=== PATIENT | female | born 1985 | race Caucasian/White ===

== ENCOUNTER → 2017-07-21 10:06 | Outpatient (CLI) | payer BC, SELFPAY ==
--- NOTE | 2017-07-21 10:13 | MR_ITS ---
MR head/brain wo/w con HISTORY: Pituitary adenoma, follow-up pituitary tumor. ITS.REASON: PIT. ADENOMA ORDERING PHYSICIAN: Toño Bennett JR PATIENT AGE: 31 years COMPARISON: 04/21/2015 TECHNIQUE: Standard multiplanar multiecho sequences are performed without and with contrast. Thin section pre and post dynamic enhanced images are obtained of the pituitary gland FINDINGS: No midline shift, mass effect, hydrocephalus, or acute infarction is evident. No enhancing lesions are evident. The cerebellopontine angles, cerebellum, and brainstem are unremarkable. There remains a nonspecific periventricular T2 white matter hyperintensities in the deep white matter of the left parietal lobe. Thin section pre and post enhanced images obtained of the pituitary gland once again shows asymmetry in the pituitary gland or a slightly more prominent on the right side is compared to the left which may represent residual from previously treated adenoma. Not significant changed. No mass effect upon the optic chiasm or other structures. No mastoid effusion or sinus air-fluid level. IMPRESSION: 1. Overall stable MRI appearance of the brain with no acute finding and no significant change. 2. Continued mild asymmetric prominence of the right aspect of the pituitary gland unchanged and may represent residual from previously treated adenoma.
== END ==
PROVIDERS: Family Provider Family Medicine; PCP Family Medicine; Visit Provider Obstetrics & Gynecology
DX: D35.2 Benign neoplasm of pituitary gland (principal)
CPT/HCPCS: 70553; A9576

== ENCOUNTER 2020-06-29 01:21 | Emergency (ER) | payer BC, SELFPAY ==
[2020-06-29] VITALS (7 sets, daily range): BP systolic 129–144; BP diastolic 79–103; PULSE 77–129; RESP 12–18; TEMP 36.7; O2SAT 97–98; BMI 35.9
--- NOTE | 2020-06-29 01:45 | CT_ITS ---
Procedure: CT ABDOMEN PELVIS W CON Referring Doctor: Claus Paulino Patient Age:34Y CLINICAL INDICATION: RLQ pain for 1 hour. No nausea nor vomiting. Complains of diarrhea COMPARISON: No exams were available for comparison TECHNIQUE: No oral enteric contrast, IV contrast = 75 cc Isovue 370 IV contrast utilized With helical axial images obtained with sagittal and coronal reformats. All CT scans at the facility use one or more dose reduction, viz: automated exposure control, ma/kV adjustment per patient size (including targeted exams where dose is matched to indication, i.e. head), or iterative reconstruction technique. FINDINGS: Lower thorax: No acute finding ABDOMEN: Liver: No significant findings. Minor focal fatty changes anteriorly near falciform ligament.. No biliary dilatation. Gallbladder: Nondistended. No radio opaque stones.. Common duct unremarkable and appears normal caliber Pancreas: Unremarkable but no masses nor evident inflammatory changes. Spleen: unremarkable normal size. Adrenals: unremarkable ----- tract ---- KIDNEYS/URETERS: unremarkable no urinary tract calculi nor obstruction PELVIS:Uterus appears normal in size with moderate/generous endometrial stripe. Right ovarian cyst, 17 mm-within a upper normal size right ovary which measures up to 3.6cm height X 2.5cm transverse 3cm AP.. Only question some scant physiologic fluid at the pelvis. Negligible Bladder: Empty nondistended. No obvious stones or masses. Appendix: Unremarkable. No distention or periappendiceal phlegmonous change. ----GI tract ---- . Stomach: Normal position, empty and unremarkable. . Duodenum loop:-appears to have normal anatomy with 3rd portion passing behind SMA, and appears to have normal fixation at ligament of Treitz set the left of midline as the duodenum progresses to the 4th portion. . Small-bowel.: Bowel cole upper normal thickness at the proximal small bowel. Nonspecific but could reflect mild enteritis. The mid and distal small bowel contain of upper normal fluid otherwise unremarkable. No distal small bowel dilatation and the terminal ileum appears normal. . Appendix:-visualized and appears normal. No appendicitis. It arises posterior aspect the cecum at left upper abdomen Large bowel.: Liquid stool is seen throughout the large bowel reflecting history of diarrhea. There is a gas distended cecum at the left upper quadrant measuring up to 10 cm maximum diameter on CT supervisor contact lens image-appearance likely reflects very mobile right colon/cecum with incomplete fixation.. Also appearance could reflect a spectrum of partial malrotation. The small bowel appears to be in normal position. The left colon and transverse colon up to the hepatic flexure appearing to be in normal position. No swirl pattern at mesentery nor no inflammatory changes at mesentery. Only a few small unimpressive mesenteric lymph nodes..SMA SMV with normal relationships, with duodenal loop appearing grossly normal position by CT. However if there are recurrent abdominal symptoms you may want consider surgical consult follow-up as outpatient as prominent mobile cecum end of itself can yield symptoms and potential problems. Peritoneum: No abnormal fluid collections. No obvious inflammatory changes. No free air. Lymph nodes: No enlarged lymph nodes apparent. Vasculature: Aorta normal caliber. There is normal SMV relationship to the SMA SMV is to the right.. CINDI is visualized and appears satisfactory. No other retroperitoneal findings.. No adenopathy or mass Bones: No acute fracture. IMPRESSION: 1..Findings likely reflect mild enterocolitis: Liquid stool throughout colon with moderate gaseous distention thro
[2020-06-29 01:52] LABS: Microscopic, Urine URINE MICROSCOPIC (MICROSCOPIC)
[2020-06-29 01:54] LABS: Basophils # 0.1 K/mm3 (0-0.2); Basophils % 0.8 % (0.1-2.0); Eosinophils # 0.1 K/mm3 (0.0-0.4); Hematocrit 45.6 % (37.0-47.0); Hemoglobin 15.1 g/dL (12.2-16.2); Lymphocytes # 2.8 K/mm3 (0.7-4.5); Lymphocytes % 28.4 % (10-50); Mean Corpuscular HGB Conc 33.2 g/dL (31.8-35.4); Mean Corpuscular Hemoglobin 31.5 pg (27.0-31.2); Mean Platelet Volume 6.9 fl (7.4-10.4); Monocytes # 0.5 K/mm3 (0.1-1.0); Monocytes % 4.9 % (1.7-9.3); Neutrophils # 6.4 K/mm3 (1.8-7.8); Neutrophils % 64.9 % (37.0-80.0); Platelet Count 364 K/mm3 (142-424); Red Cell Distribution Width 13.9 % (11.5-17.5); White Blood Count 9.8 K/mm3 (4.8-10.8)
[2020-06-29 01:55] LABS: Appearance,Urine CLEAR (Clear); Bilirubin,Urine Negative (Negative); Blood, Urine Negative (Negative); Color,Urine YELLOW (Yellow); Glucose,Urine (UA) Negative (Negative); Ketones,Urine Negative (Negative); Leukocyte Esterase,Urine Negative (Negative); Nitrate,Urine Negative (Negative); PH,Urine 5.5 (5.0-8.5); Protein,Urine Negative (Negative); Specific Gravity, Urine >= 1.030 (1.005-1.030); Urobilinogen,Urine 0.2 EU/dl (0.2)
[2020-06-29 02:02] LABS: Urine Pregnancy, HCG Qual. Negative (Negative)
[2020-06-29 02:03] LABS: Mucus,Urine 4+ /lpf
[2020-06-29 02:07] LABS: Alanine Aminotransferase 21 U/L (12-78); Albumin Level 4.6 g/dl (3.5-5.0); Albumin/Globulin Ratio 1.4 (1.1-1.8); Alkaline Phosphatase 67 U/L (38-126); Amylase 54 U/L (30-110); Anion Gap 16.7 mEq/L (5-15); Aspartate Amino Transferase 33 U/L (14-36); Bilirubin,Total 0.4 mg/dl (0.2-1.3); Blood Urea Nitrogen 7 mg/dl (7-17); Calcium 9.1 mg/dl (8.4-10.2); Carbon Dioxide 24 mmol/L (22.0-30.0); Chloride 106 mmol/L (98-107); Creatinine Clearance Estimated 136 mL/min (50-200); Estimated Glomerular Filt Rate 83 ml/min (>60); GFR (African American) 100 ML/MIN (>60); Globulin 3.2 g/dL (1.3-3.2); Glucose 112 mg/dl (74-100); Lipase 95 U/L (23-300); Potassium 3.7 mmoL/L (3.5-5.1); Sodium 143 mmol/L (136-145); Total Protein,Serum 7.8 g/dl (6.3-8.2)
[2020-06-29 02:12] LABS: C-Reactive Protein 3.7 mg/L (0-4)
[2020-06-29 02:20] LABS: Erythrocyte Sedimentation Rate 6 mm/hr (0-20)
--- NOTE | 2020-06-29 02:52 | HMH.EDNVD ---
ED Disposition Clinical Impression: Malrotation cecum Abdominal pain Qualifiers: Abdominal location: right lower quadrant Qualified Code(s): R10.31 - Right lower quadrant pain Disposition: Home, Self-Care Condition on Discharge: Good Instructions: DI for Acute Abdominal Pain Additional Instructions: recheck if any issues and call pcp for xray results Referrals: Piotr Linda MD [Primary Care Provider] - - Critical Care Critical Care Time: No Attestation: On 06/29/20, the high probability of a clinically significant, sudden or life threatening deterioration of the following system(s) required my full and direct attention, intervention and personal management. The time I documented below is in addition to time spent performing reported procedures but includes the following listed in this critical care notation. Medical Decision Making - Medical Records Medical records reviewed: Yes: I reviewed the patient's medical records. - Ivan Inquiry Pt receiving controlled substance: No Vital Signs: 06/29/20 01:35 06/29/20 01:51 06/29/20 02:31 Temperature 98.0 F Temperature Source Oral Pulse Rate [Right] 129 H 112 H 89 Respiratory Rate 18 18 16 Blood Pressure [Right Arm] 143/103 H 134/95 H 135/87 Blood Pressure Mean [Right Arm] 116 108 103 Blood Pressure Source [Right Arm] Automatic Cuff Blood Pressure Position [Right Arm] Supine Supine 02 Sat by Pulse Oximetry 97 97 97 Oxygen Delivery Method Room Air Room Air Room Air 06/29/20 03:00 06/29/20 03:30 06/29/20 03:56 Temperature Temperature Source Pulse Rate [Right] 82 77 78 Respiratory Rate 17 17 12 Blood Pressure [Right Arm] 144/79 H 138/84 129/83 Blood Pressure Mean [Right Arm] 100 102 98 Blood Pressure Source [Right Arm] Automatic Cuff Automatic Cuff Blood Pressure Position [Right Arm] Supine Supine 02 Sat by Pulse Oximetry 98 98 97 Oxygen Delivery Method Room Air Room Air Room Air - Lab Data Lab results reviewed: Yes: I reviewed the patient's lab results. Lab Results 06/29/20 01:25: Urine Color Yellow, Urine Appearance Clear, Urine pH 5.5, Ur Specific [place] >= 1.030, Urine Protein Negative, Urine Glucose (UA) Negative, Urine Ketones Negative, Urine Blood Negative, Urine Nitrate Negative, Urine Bilirubin Negative, Urine Urobilinogen 0.2, Ur Leukocyte Esterase Negative, Ur Squamous Epith Cells 10-20, Urine Mucus 4+ 06/29/20 01:25: Urine HCG, Qual Negative 06/29/20 01:43: WBC 9.8, RBC 4.80, Hgb 15.1, Hct 45.6, MCV 95.0, MCH 31.5 H, MCHC 33.2, RDW 13.9, Plt Count 364, MPV 6.9 L, Neut % (Auto) 64.9, Lymph % (Auto) 28.4, [place] % (Auto) 4.9, Eos % (Auto) 1.0, Baso % (Auto) 0.8, Neut # (Auto) 6.4, Lymph # (Auto) 2.8, [place] # (Auto) 0.5, Eos # (Auto) 0.1, Baso # (Auto) 0.1, ESR 6 06/29/20 01:43: Sodium 143, Potassium 3.7, Chloride 106, Carbon Dioxide 24, Anion Gap 16.7 H, BUN 7, Creatinine 0.80, Estimated Creat Clear 136, Estimated GFR 83, Est GFR ( Amer) 100, Glucose 112 H, Calcium 9.1, Total Bilirubin 0.4, AST 33, ALT 21, Alkaline Phosphatase 67, C-Reactive Protein 3.7, Total Protein 7.8, Albumin 4.6, Globulin 3.2, Albumin/Globulin Ratio 1.4, Amylase 54, Lipase 95, Procalcitonin 0.040 Result diagrams: 06/29/20 01:43 06/29/20 01:43 Orders (Tests/Meds): ED MEDICATIONS Generic Name Dose Route Start Last Admin Trade Name Freq PRN Reason Stop Dose Admin Sodium Chloride 1,000 mls @ 999 mls/hr 06/29/20 01:45 06/29/20 01:51 Sod Chlor 0.9% 1000ml Bag IV 06/29/20 02:45 999 mls/hr .Q1H1M PRINCESS Administration Sodium Chloride 8 ml 06/29/20 01:45 Sodium Chloride 0.9% 10ml Vial IV 07/29/20 01:44 NEEDED PRN dilute pepcid Discontinued Medications Generic Name Dose Route Start Last Admin Trade Name Freq PRN Reason Stop Dose Admin Famotidine 20 mg 06/29/20 01:45 06/29/20 01:50 Famotidine 20mg/2ml Vial IV 06/29/20 01:46 20 mg ONCE ONE Administration Iopamidol 75 ml 06/29/20 02:33 06/29/20 02:35
--- NOTE | 2020-06-29 03:19 | XR_ITS ---
PROCEDURE: XR ACUTE ABDOMEN SERIES Referring Doctor: Claus Paulino Patient Age:34Y CLINICAL INDICATION: RLQ Pain With diarrhea. No nausea or vomiting COMPARISON: CT CT ABDOMEN PELVIS W CON from 06/29/2020 FINDINGS: Flat and upright views of abdomen along with upright chest performed. Abdomen/pelvis flat and upright: Studies appear to be performed approximately [address] abdomen as there is contrast filling the urinary bladder and faint contrast seen within the normal pelvicaliceal system of kidneys. . There is a generous air-fluid level within the distended cecum but cecum measures up to 11 cm diameter. And resides to the left of midline at the abdomen. Cecum appears to be directed upward here at the left abdomen. This would appear to reflect a very mole bowel cecum and right colon with possibly incomplete rotation/spectrum of my rotation contributing. Prominent mobile cecum of this nature can be prone cecal volvulus and of the pain or symptoms progress follow-up would be important The transverse colon and left colon appear relatively decompressed with only minimal air-fluid levels/liquid stool reflecting diarrhea No organomegaly. Osseous structures unremarkable. Lung bases clear but Upright chest but no free air beneath the diaphragm. Heart roma mediastinal structures unremarkable. Lungs clear with no active disease. With minimal gas and air-fluid levels IMPRESSION: A liquid stool throughout the colon reflecting diarrhea. Most prominent air-fluid level associated with the prominent gaseous distension cecum the seen to the left of midline at the abdomen. Distended cecum measuring up to of weiss cm diameter on plain film which includes slight magnification) ... Although prior CT earlier today note some tapering of the right colon where crosses midline leading towards this distended cecum, there is no evidence of actual twisting or volvulus a at this point in time. No inflammatory changes or wall thickening in this region either on today's CT.. However prominent mobile cecum of this character can be prone to volvulus and if abdominal symptoms progress and worsen, follow-up of will be important and should be emphasized).. Dictated by: Gaston John MD 06/29/2020 07:21 Gaston John MD in OV 06/29/2020 07:21
== END 2020-06-29 04:20 | disposition home or self-care (01) ==
PROVIDERS: Emergency Provider Emergency Medicine; PCP Family Medicine
DX: R10.31 Right lower quadrant pain (principal); Q43.3 Congenital malformations of intestinal fixation
CPT/HCPCS: 74021; 74177; 80053; 81001; 81025; 82150; 83690; 84145; 85025; 85651; 86140; 96365; 96375; 99284; J2405; Q9967

== ENCOUNTER → 2020-08-11 12:19 | Outpatient (POV) | payer BC, SELFPAY | PROVIDERS: Visit Provider Nurse Practitioner Family | DX: Z00.00 Encounter for general adult medical examination without abnormal findings (principal) ==

== ENCOUNTER → 2020-08-23 11:47 | Outpatient (CLI) | payer BC, SELFPAY ==
[2020-08-23 12:38] LABS: Urine Pregnancy, HCG Qual. Negative (Negative)
[2020-08-23 14:08] LABS: Coronavirus 19 IgG Antibody Negative (Negative); Coronavirus 19 IgM Antibody Negative (Negative)
== END ==
PROVIDERS: Visit Provider Internal Medicine Gastroenterology
DX: Z01.818 Encounter for other preprocedural examination (principal); Z20.822 Contact with and (suspected) exposure to COVID-19; Z13.810 Encounter for screening for upper gastrointestinal disorder
CPT/HCPCS: 36415; 81025; 86328

== ENCOUNTER 2020-08-25 09:44 | Day surgery (SDC) | payer BC, SELFPAY ==
[2020-08-22 15:46] VITALS: BMI 35.9
[2020-08-25 10:19] VITALS: BP 148/96; PULSE 92; RESP 20; TEMP 36.6; O2SAT 99
[2020-08-25 10:47] VITALS: O2SAT 97
--- NOTE | 2020-08-25 10:52 | HMH.ANESCL ---
[facility] Anesthesia Checklist - Patient Identification Patient Identification: Arm Band - Structural Data Admitted From: Home Planned Operative Procedure/s: egd Consent for Planned Operative Procedure(s) Verified: Yes Verified Documents: Surgical Consent, History and Physical - NPO Status Verified Time NPO: 00:00 - Additional verifications Anesthesia Reactions: No - Airway Assessment C-Spine Mobility Assessed: Yes (mp2) TMJ Mobility Assessed: Yes Dentition: Good Dentition - Neurological Assessment Level of Consciousness: Awake, Alert - Anesthesia Plan Anesthesia Risk discussed: Yes Anesthesia Plan: Verified ASA Class: II Anesthesia Type: MAC [facility] History I have reviewed the patient's past medical history: Yes Medical History: Reports:: Gastroesophageal Reflux Disease(GERD) Denies:: Cancer, Diabetes Mellitus Type 1, Diabetes Mellitus Type 2, Internal Pacemaker, MRSA, Seizures *Have you ever received a pneumonia vaccine?: No *Have you received a flu vaccine this season?: No Anesthesia experience/problems:: nac Laterality Cases: Bilateral: Tonsillectomy Other Surgeries: No: Pacemaker Amputation: No Fractures: No - *Social History Last grade of school completed: Some college Smoking Status: Never smoker Alcohol Intake: current Alcohol Intake Frequency:: a few times a month Substance Use Type: denies use *Occupational Status:: employed Housing: house Household Members: spouse, family *Travel in the last 8 weeks: Inside the [place] Family Hx:: No significant family history
--- NOTE | 2020-08-25 11:08 | HMH.PROC ---
[facility] Procedure Note Procedure Note:: Upper Endoscopy Procedure Report: Esophagogastroduodenoscopy with cold biopsies and TTS balloon dilation Endoscopost: Chivo Baird II, MD Referring Physician: José Manuel Smiley MD/Piotr Linda MD Date of Procedure: August 25, 2020 Equipment: Olympus GIF 190 standard upper endoscope Sedation: MAC sedation Indications: Mrs. Gonzalez is a 34-year-old female with right sided abdominal pain that occurred acutely on June 29, 2020. She went to the emergency department and had a CAT scan. This did show findings of mild enterocolitis with liquid stool throughout the colon with a moderate gaseous distention throughout the colon particularly of the cecum. The cecum did appear to reside in the left upper quadrant with prominent mobile right colon reflective of incomplete fixation or malrotation. There also appeared to be a 17 mm ovarian cyst of the right ovary. There was no evidence of appendicitis. This did resolve. She later had indigestion and reflux. She was also having more frequent dysphagia. She did note some bright red rectal bleeding with her stools which has resolved after taking famotidine. She does report moderate bloating and some early satiety. She reports no nausea or belching. She has some dyspepsia. She also reports alternating constipation with diarrhea. She does take ibuprofen fairly regularly. Procedure: Prior to the procedure, a history and physical exam was performed, and patient's medications and allergies were reviewed. The risks, benefits and alternatives of the sedation and procedure were discussed with the patient. All questions were answered and informed consent was obtained. The patient was brought to the procedure room. Patient identification and proposed procedure were verified by the physician and the nurse. The patient was placed in a left lateral decubitus position and the scope was passed under direct vision. Throughout the procedure, the patient's blood pressure, pulse, and oxygen saturations were monitored continuously. The upper GI endoscopy was accomplished without difficulty. The patient tolerated the procedure well. Findings: The scope was passed directly into the upper esophagus and advanced to the third portion of the duodenum. The post bulbar duodenum and duodenal bulb were normal with normal mucosa and conniventes. The scope was withdrawn through a normal duodenal bulb and pylorus into the stomach. There was linear erosive gastritis with at least one superficial gastric antral ulceration. This did appear to be NSAID gastropathy. There was some bile reflux. The remainder of the antrum, body and fundus of the stomach were grossly normal. Upon retroflexion there was a small 1 to 2 cm hiatal hernia. 2 biopsies were taken in the antrum and along the lesser curvature for histology to rule out gastritis and/or H pylori. The scope was then withdrawn into the esophagus. There was grade A?B (LA classification) reflux esophagitis. There were tertiary contractions and evidence of mild esophageal dysmotility. The entire esophagus was dilated to 60 Martiniqu[place]/20 mm with a TTS hydrostatic balloon. There was some resistance at the cricopharyngeus. The remainder of the esophageal mucosa was normal. Impression: 1. Grade A?B reflux esophagitis with small 1 to 2 cm hiatal hernia 2. Erosive gastropathy?rule out NSAID gastropathy and concomitant bile gastropathy Plan: I would recommend PPI therapy. I will also discuss additional treatment of her IBS constipation. I will follow-up the biopsies.
[2020-08-25 11:10] VITALS: BP 109/61; PULSE 71; RESP 12; TEMP 36.6; O2SAT 94
[2020-08-25 11:20] VITALS: BP 113/51; PULSE 66; RESP 16; O2SAT 97
[2020-08-25 11:30] VITALS: BP 120/82; PULSE 67; RESP 16; O2SAT 98
[2020-08-25 11:40] VITALS: BP 129/67; PULSE 69; RESP 16; TEMP 36.6; O2SAT 99
== END 2020-08-25 11:41 | disposition home or self-care (01) ==
PROVIDERS: PCP Nurse Practitioner Family; Visit Provider Internal Medicine Gastroenterology
PROC: 0DJ08ZZ Inspection of Upper Intestinal Tract, Via Natural or Artificial Opening Endoscopic (ICD-10-PCS; CPT 43235; principal; 2020-08-25 11:00)
DX: K20.80 Other esophagitis without bleeding (principal); K44.9 Diaphragmatic hernia without obstruction or gangrene; K31.9 Disease of stomach and duodenum, unspecified; K21.9 Gastro-esophageal reflux disease without esophagitis; Z82.3 Family history of stroke; Z80.3 Family history of malignant neoplasm of breast; Z83.3 Family history of diabetes mellitus; Z88.1 Allergy status to other antibiotic agents; Z79.899 Other long term (current) drug therapy
CPT/HCPCS: 43239; 43249; C1726

== ENCOUNTER → 2020-12-01 14:52 | Outpatient (POV) | payer BC, SELFPAY | PROVIDERS: Visit Provider Nurse Practitioner Family | DX: Z00.00 Encounter for general adult medical examination without abnormal findings (principal) ==